=== PATIENT | male | born 1975 | race African-American/Black ===

== ENCOUNTER 2021-04-25 03:35 | Emergency (ER) | payer SELFPAY ==
[2021-04-25 04:05] VITALS: BP 109/75; PULSE 96; TEMP 98.3; BMI 31.8
[2021-04-25] MEDS ORDERED: ACETAMINOPHEN 1000 MG/100 ML BAG IVPB ONE (04:17)
[2021-04-25] MEDS ORDERED: ACETAMINOPHEN INJECTION 100 ML IVPB ONE (04:29)
[2021-04-25] MEDS ORDERED: LORazepam 2 MG/ML SDV VIAL IVPUSH ONE (04:48)
[2021-04-25] MEDS ORDERED: DALBAVANCIN HCL 1,500 MG in DEXTROSE 5%-WATER - 500 ML IVPB ONE (04:54)
[2021-04-25 04:57] LABS: BASO % 0.2 % (0-2.0); EOS % 0.1 % (0-4.5); HEMATOCRIT 30.7 % (35.4-49); HEMOGLOBIN 10.2 GM/dL (11.7-16.9); LYMPH % 10.6 % (8-40); MCH 26.1 pg (25.7-33.7); MCHC 33.2 g/dl (32.0-35.9); MEAN CELL VOLUME 78.6 fl (80-96); MEAN PLT VOLUME 9.5 fl (7.5-11.1); MONO % 8.2 % (3.8-10.2); NEUT % 80.9 % (42.8-82.8); PLATELET COUNT 307 10^3/uL (134-434); RBC 3.91 M/mm3 (4.00-5.60); RDW 18.1 % (11.9-15.9); WHITE BLOOD COUNT 11.9 K/mm3 (4.0-10.0)
[2021-04-25] MEDS ORDERED: DALBAVANCIN HCL 500 MG VIAL (RESTRICTED TO ID ONLY) IVPB ONE (04:59)
[2021-04-25 05:18] LABS: CALCIUM 8.6 mg/dL (8.5-10.1)
[2021-04-25 05:19] LABS: ALBUMIN 3.7 g/dl (3.4-5.0); BLOOD UREA NITROGEN 14.7 mg/dL (7-18)
[2021-04-25] MEDS ORDERED: HALOPERIDOL LACTATE 5 MG/ML IV ONE (05:20)
[2021-04-25] MEDS ORDERED: LORazepam 2 MG/ML SDV VIAL IVPB PRN (05:21)
[2021-04-25 05:22] LABS: CREATININE 1.3 mg/dL (0.55-1.3)
[2021-04-25] MEDS ORDERED: HALOPERIDOL LACTATE 5 MG/ML ONE (05:22)
[2021-04-25 05:24] LABS: BILIRUBIN,TOTAL 1.7 mg/dL (0.2-1); TOT PROT 6.7 g/dl (6.4-8.2)
== END 2021-04-25 08:10 | disposition home or self-care (01) ==
LOC: JER 03:35
PROC: 3E033GC Introduction of Other Therapeutic Substance into Peripheral Vein, Percutaneous Approach (ICD-10-PCS; principal; 2021-04-25)
DX: L03.115 Cellulitis of right lower limb (principal); L03.116 Cellulitis of left lower limb
CPT/HCPCS: 36415; 80053; 83735; 85025; 99284-25; J0875